=== PATIENT | male | born 1995 | race Caucasian/White ===

== ENCOUNTER 2017-10-06 08:04 | Emergency (ER) | payer BC, OTHER ==
[~2017-10-06] VITALS: Ht 177.8 cm; Wt 67.0 kg
[~2017-10-06 08:04] MED LIST: EPP3/2 IM
[2017-10-06 08:07] VITALS: BP 122/44; TEMP 36.5; Ht 177.8 cm; Wt 67.0 kg
--- NOTE | 2017-10-06 08:39 | DIAGNOSTIC IMAGING REPORT ---
R ANKLE MIN 3 VIEWS ROUTINE CLINICAL HISTORY: RIGHT, EVAL PAIN trauma. Pain. COMPARISON: None. DISCUSSION: The bones and joint spaces appear intact. There is no evidence of fracture, dislocation or bony disease. There is no evidence for soft tissue swelling. IMPRESSION: Negative study. The above report was generated using voice recognition software. It may contain grammatical, syntax or spelling errors. Electronically signed by: Abrahan Figueroa M.D. 10/06/2017 8:38 AM Dictated Date/Time: 10/06/2017 8:37 AM
--- NOTE | 2017-10-06 08:40 | DIAGNOSTIC IMAGING REPORT ---
R FOOT MIN 3 VIEWS ROUTINE CLINICAL HISTORY: RIGHT, EVAL PAIN trauma. Pain. COMPARISON: None. DISCUSSION: The bones and joint spaces appear intact. There is no evidence of fracture, dislocation or bony disease. There is no evidence for soft tissue swelling. IMPRESSION: Negative study. The above report was generated using voice recognition software. It may contain grammatical, syntax or spelling errors. Electronically signed by: Abrahan Figueroa M.D. 10/06/2017 8:38 AM Dictated Date/Time: 10/06/2017 8:38 AM
[2017-10-06] MEDS ORDERED: DOXY1TAB6 PO (08:46)
--- NOTE | 2017-10-06 08:50 | EMERGENCY ROOM VISIT NOTE ---
ED Visit Note First contact with patient: 08:11 CHIEF COMPLAINT: Right foot and ankle pain this morning HISTORY OF PRESENT ILLNESS: Patient is a 22-year-old male who presents to the emergency department for evaluation of pain in the right foot and ankle. He noticed the pain when he woke up this morning about 30 minutes ago. He admits that he was drinking alcohol last night, and does not recall any events of last evening. He could have rolled or twisted the ankle but he is unsure. He complains of pain in the medial aspect of the right ankle primarily, radiating to the top of the foot. He is unable to bear weight on the ankle. He did not take any medications, nor perform any interventions for his symptoms. He rates his discomfort a 7/10. He denies any prior significant injuries to this foot or ankle. No other complaints. REVIEW OF SYSTEMS: Review of systems as per HPI. All other systems reviewed were negative. At least 6 systems reviewed. PMH: Electronic medical records are reviewed and summarized as above/below. See Problem List. SOCIAL HISTORY: Patient is a college student originally from [place], he lives locally here with roommates. He does not smoke tobacco, admits to marijuana and alcohol use. PHYSICAL EXAM: Vital Signs: Reviewed Nurse's notes. MENTAL STATUS: Pleasant, well-appearing 22-year-old male who is awake and alert and in no acute distress. MUSCULOSKELETAL: The right ankle is slightly swollen and tender over the lateral aspect but the skin is intact and there is no ligamentous instability. He does have some slight pain over the 5th metatarsal, no pain over the proximal fibular head. Lisfranc joint is negative. There is no deformity. The foot and toes are warm and well-perfused. Sensation to pain and light touch is intact. EMERGENCY DEPARTMENT COURSE: X-ray of the right foot and ankle were obtained. Patient was given an ice pack. X-rays did not reveal any evidence for an acute fracture. A compression sleeve and gel splint were applied to the ankle under my direction and the position was satisfactory. Crutches were issued and patient was instructed on a non weight bearing gait. Differential diagnosis include foot verses ankle sprain/fracture, contusion, dislocation. Medication reconciliation: I attest that I have personally reviewed the patient' s current medication list. Blood pressure screening : Patient was found to have normal blood pressure on screening and does not require follow-up. R ANKLE MIN 3 VIEWS ROUTINE CLINICAL HISTORY: RIGHT, EVAL PAIN trauma. Pain. COMPARISON: None. DISCUSSION: The bones and joint spaces appear intact. There is no evidence of fracture, dislocation or bony disease. There is no evidence for soft tissue swelling. IMPRESSION: Negative study. R FOOT MIN 3 VIEWS ROUTINE CLINICAL HISTORY: RIGHT, EVAL PAIN trauma. Pain. COMPARISON: None. DISCUSSION: The bones and joint spaces appear intact. There is no evidence of fracture, dislocation or bony disease. There is no evidence for soft tissue swelling. IMPRESSION: Negative study. Problem List Medical Problems: (1) Allergic reaction Status: Resolved (2) Anaphylaxis Status: Resolved (3) Anaphylaxis Status: Resolved (4) Asthma Status: Chronic (5) Peanut allergy Status: Chronic Surgical Problems: (1) History of appendectomy Status: Resolved (2) History of nasal septoplasty Status: Resolved (3) History of wisdom tooth extraction Status: Resolved Current/Historical Medications Scheduled Doxycycline Hyclate (Doxycycline Hyclate), 1 TAB PO BID Epinephrine (Epipen 2-Sridhar), 0.3 MG IM prn Allergies Coded Allergies: Peanut (Verified Allergy, Unknown, ANAPHYLAXIS, 10/06/17) Vital Signs Date Time Temp Pulse Resp B/P (MAP) Pulse Ox O2 Delivery O2 Flow Rate FiO2 10/06/17 09:15 82 14 98 10/06/17 08:07 36.5 87 18 122/44 96 Room Air Departure Information Impression Primary Impression: Right ankle pain Referrals [facility] (PCP) Buzz Hogan M.D. Patient Instructions [facility] Additional Instructions Ibuprofen(Motrin, Advil) may be used for fever or pain. Use 600mg every six hours as needed. Take with food. Avoid using more than 2400mg in a 24 hour period. Do not use 2400mg per day for more than three consecutive days without physician direction. Prolonged inappropriate use can lead to stomach upset or ulcers. This medication can be taken if you need to drive, work, or perform activities which may be dangerous when taking narcotic pain medication. (AND/OR) Acetaminophen(Tylenol) may be used for fever or pain. Use 1000mg every six hours as needed. Avoid using more than 3000mg in a 24 hour period. This medication can be taken if you need to drive, work, or perform activities which may be dangerous when taking narcotic pain medication. Ice compresses for 20 minutes at a time four times daily for 2-3 days. Use the gel splint and crutches as instructed. Rest and elevate your injury. Continue current medications. Return to the ER immediately for any numbness, tingling, severe pain, extreme swelling in the extremity or as needed. Followup with [facility] if no improvement in 5-7 days.
[2017-10-06 09:15] VITALS: PULSE 82; O2SAT 98
== END 2017-10-06 09:13 | disposition home or self-care (01) ==
LOC: C.EDB 08:07 → C.EDA 09:13
DX: M25.571 Pain in right ankle and joints of right foot (principal); F12.90 Cannabis use, unspecified, uncomplicated; Z72.89 Other problems related to lifestyle; Z91.010 Allergy to peanuts